=== PATIENT | female | born 1995 | race Caucasian/White ===

== ENCOUNTER 2023-10-06 10:38 | Outpatient (CLI) | payer OTHER, SELFPAY ==
--- NOTE | ~2023-10-06 | US_ITS ---
Pelvic ultrasound. Clinical History: Pelvic pain Technique: Realtime transabdominal and transvaginal scanning of the pelvis was performed. Color flow Doppler and Doppler spectral analysis were performed. Findings: The uterus is anteverted. The endometrial stripe has a thickness of 5 mm. No focal mass is identified. The right ovary measures 3.3 x 1.8 x 2.3 cm. No significant right ovarian or adnexal mass is seen. The left ovary measures 2.2 x 2.6 x 2.2 cm. No significant left ovarian or adnexal mass is seen. There is no evidence of free fluid in the cul de sac. Impression: Unremarkable pelvic ultrasound. Reviewed, dictated and finalized at location . ENFORCEMENT DIRECTOR Impression: Unremarkable pelvic ultrasound.
== END 2023-10-06 10:39 ==
PROVIDERS: PCP Obstetrics & Gynecology; Visit Provider Obstetrics & Gynecology
DX: R10.2 Pelvic and perineal pain (principal)
CPT/HCPCS: 76830; 76856

== ENCOUNTER 2024-01-30 07:00 | Outpatient (NON) | payer OTHER, SELFPAY | END 2024-01-30 07:01 | disposition home or self-care (01) | LOC: ANHLAB 02-02 06:49 | PROVIDERS: Visit Provider Obstetrics & Gynecology | DX: N39.3 Stress incontinence (female) (male) (principal) | CPT/HCPCS: 88305 ==

== ENCOUNTER 2024-01-30 08:42 | Day surgery (SDC) | payer OTHER, SELFPAY ==
[2024-01-30] VITALS (8 sets, daily range): BP systolic 112–138; BP diastolic 65–82; PULSE 57–85; RESP 11–16; TEMP 36.7–37.2; O2SAT 100
--- NOTE | 2024-01-30 11:51 | P.PNAN_ITS ---
Anes - Initial Pre Proc Eval Procedure: Operation Date: 01/30/24 12:00 Proposed Procedures p Laparoscopic Tubal Ligation - Jaden Smith MD s Hysteroscopy with Dilation and Curettage; Joceline Uterine Ablation - Jaden Smith MD s Nexplanon Implant Removal Left Upper Arm - Jaden Smith MD Date/Time: 01/30/24 11:51 Surgeon: Jaden Smith MD Pre Op Diagnosis: Desired Sterilization, Heavy Bleed. w/Dysmenorrhea Patient Data Age: 29 Gender: F Height: 1.68 m Weight: 78.925 kg Last Vital Signs Temp 37.2 C 01/30/24 10:24 Pulse 57 L 01/30/24 10:24 Resp 14 01/30/24 10:24 BP 138/72 01/30/24 10:24 Pulse Ox 100 01/30/24 10:24 O2 Del Method Room Air 01/30/24 10:24 Allergies Allergy/AdvReac Type Severity Reaction Status Date / Time No Known Allergies Allergy Verified 01/30/24 10:20 Home Medications Medication Instructions Recorded Confirmed Type multivitamin 1 tablet PO DAILY 01/20/24 01/30/24 History Patient hx anesthesia problems: none Family hx anesthesia problems: none Results Review: All pre-operative results and documents have been reviewed as part of the pre- operative evaluation. [facility] Past Medical History Medical History (Updated 01/30/24 @ 11:52 by Alcides Dong DO) Endometriosis Social History Social History Smoking status: Current every day smoker Tobacco type: e-cigarettes/vaping Additional smoking assessment comments: former Cigarettes, current vaping Alcohol intake: current Drinks per week: 1 Substance use type: does not use Anes - Eval Final PreProcedure Day of Procedure 01/30/24 11:51 Patient weight: overweight Heart: regular rate and rhythm Lungs: clear to auscultation Airway: Mallampati scale class 1 Neurological: alert and oriented Last oral intake: >/= 8 hours ASA classification: II Emergent: no Anesthetic plan: proceed Anesthesia type and monitoring: general ETT and standard monitoring Results Review: All pre-operative results and documents have been reviewed as part of the pre- operative evaluation. Informed Consent: The patient's anesthetic plan and its attendant risks and benefits were discussed with the patient/family/POA. Questions were solicited and answers provided to the satisfaction of the patient/family/POA.
--- NOTE | 2024-01-30 12:04 | PM.IMHP ---
H&P: HPI History of Present Illness Date/Time: 01/30/24 12:04 Chief Complaint: Painful periods Narrative: 28 yo with a history of endometriosis. She has heavy, painful menses. She is through with childbearing. She is interested in surgical management. Review of Systems Review of Systems: All systems reviewed & are unremarkable except as noted in HPI and below PMFSH Past Medical History Medical History Endometriosis Surgical History Surgical History History of appendectomy History of laparoscopy History of umbilical hernia repair Social History Social History Smoking status: Current every day smoker Tobacco type: e-cigarettes/vaping Additional smoking assessment comments: former Cigarettes, current vaping Alcohol intake: current Drinks per week: 1 Substance use type: does not use Meds Home Medications and Allergies Home Medications Medication Instructions Recorded Confirmed Type multivitamin 1 tablet PO DAILY 01/20/24 01/30/24 History Allergies Allergy/AdvReac Type Severity Reaction Status Date / Time No Known Allergies Allergy Verified 01/30/24 10:20 Vital Signs Vital Signs - 24 hr 01/30/24 10:24 Temperature 37.2 C Pulse Rate 57 L Respiratory Rate 14 Blood Pressure 138/72 Pulse Oximetry 100 Oxygen Delivery Room Air Exam Const: Orientation/consciousness: patient oriented x3 Other: Well-developed, well-nourished female in no acute distress. Neck: Thyroid: thyroid normal Lymphatic: no lymphadenopathy noted (in neck, axilla or inguinal nodes) Resp: Effort & Inspection: normal respiratory effort Auscultation: clear to auscultation bilaterally Cardio: Rate: regular rate Rhythm: regular rhythm Heart sounds: S1 normal heart sound present and S2 normal heart sound present GI: Other: ABD: Soft, nontender, nondistended. No guarding or rebound tenderness. No hepatosplenomegaly. : General: Yes no CVA tenderness Other: External genitalia: normal female hair distribution, without lesion. Urethral meatus: no lesion, non prolapsed. Bladder: no mass, nontender Vagina: well-estrogenized, without lesion or discharge. No cystocele or rectocele. Cervix: no lesion or discharge. Uterus: small, anteverted, freely mobile, nontender Adnexa: no mass or tenderness. Anus/perineum: no lesions, nontender Back/Spine/Pelvis: Back: no CVA tenderness Skin: General skin exam: normal color and no rashes or lesions noted Neuro: General: patient oriented x3 Extrem: Other: Extremities: nontender with no edema Psych: Mental Status: mental status grossly normal Affect: normal affect Assessment and Plan Assessment and plan (1) Menometrorrhagia: Code(s): N92.1 - Excessive and frequent menstruation with irregular cycle Status: Acute Assessment and Plan: A: Menometrorrhagia with dysmenorrhea, desired sterility. P: Reviewed medical as well as surgical approaches, and she prefers the latter. Specifically, I have offered her laparoscopic bilateral tubal ligation, hysteroscopy, dilation and sharp curettage and endometrial ablation, and removal of Nexplanon. She understands there are temporary methods of contraception available to her. She understands that there are nonsurgical options as well as surgical options. She understands that tubal ligation will render her permanently sterile. She understands that there is a failure rate associated with tubal ligation, as well as an inherent ectopic gestation risk. Furthermore, she understands risks of surgery to include risks of anesthesia, risks of pain, infection, bleeding, blood products, thromboembolic phenomena and damage to adjacent structures such as bowel, bladder, ureters, blood vessels and nerves. She understands all these
[2024-01-30] MEDS: LACTATED RINGERS 1,000 ML 30 ML IV CONT ×2 (12:05→13:47)
[2024-01-30] MEDS: ACETAMINOPHEN 500 MG TABLET 1000 MG PO (12:06)
--- NOTE | 2024-01-30 12:08 | WPDHPUPDATE1 ---
History and Physical Update Update Date/Time: 01/30/24 12:08 History and Physical has been reviewed, including an updated exam of the patient. There are NO changes in the patient's condition. Risks, benefits, and alternatives have been discussed and questions answered. Patient agrees to proceed with procedure.
--- NOTE | 2024-01-30 12:12 | SUR.PREOP ---
Per Dr. Smith, no antibiotic or SCD orders for pt in pre-op.
[2024-01-30] MEDS: LIDOCAINE HCL 1% LOCAL INJ 20 ML VIAL INFILTRATE (13:08)
--- NOTE | 2024-01-30 13:13 | W.PM.PROC2 ---
Procedure Note - Detailed Date of Procedure 01/30/24 Pre-op Diagnosis Menometrorrhagia Dysmenorrhea Desired sterility Post-op Diagnosis Same Procedure Performed Laparoscopic bilateral tubal ligation with Falope rings Incision and drainage of right ovarian cyst Hysteroscopy Dilation and sharp curettage Endometrial ablation Removal of Nexplanon contraceptive prema Surgeon Jaden Smith MD Anesthesia General and Local (1% lidocaine) Findings On laparoscopy, a 2 cm right ovarian cyst was noted, filled with serous fluid. Otherwise, unremarkable uterus, bilateral tubes and ovaries, bilateral round and uterosacral ligaments, anterior and posterior cul de sac. On hysteroscopy, the endometrial cavity was unremarkable. Both tubal ostia were seen. The uterus sounded to a depth of 7.5 cm with a cervical length of 3 cm. The Nexplanon prema was in the expected location in the left arm and was removed intact. Description of Procedure The patient was taken to the operating room where general endotracheal anesthesia was administered. She was prepared and draped in the usual sterile fashion in dorsal lithotomy position. The bladder was drained with a red rubber catheter. A sterile speculum was placed into the vagina. The anterior lip of the cervix was grasped with a single-tooth tenaculum. The acorn uterine manipulator was placed. The speculum was withdrawn. Gloves were changed and attention was turned the abdomen. An infraumbilical skin incision was made with a scalpel. The abdomen was tented and a 5 mm bladeless trocar was advanced under direct laparoscopic visualization. Pneumoperitoneum was administered using carbon dioxide gas. A survey of the pelvis and abdomen revealed the findings noted above. A second skin incision was made in the midline above the symphysis pubis and an 8 mm bladeless trocar was advanced under direct laparoscopic visualization. The fallopian tube on the right side was followed out to the fimbriated end for identification. It was then grasped in the midportion with the Falope ring applicator. The Falope ring was tented applied. A good loop of tube was noted to be distal to the ring. Hemostasis was excellent. The device was reloaded and the contralateral tube was similarly identified and ligated. An excellent application was noted here as well. A total of 6 mL of 1% lidocaine was infiltrated into the serosa of the proximal tubes for postoperative anesthesia. The ports were withdrawn. The gas was allowed to escape. The skin incisions were reapproximated using interrupted subcuticular sutures of 4 0 Vicryl. Dermaflex was applied externally. Attention was redirected to the vagina, where the acorn manipulator was withdrawn and the speculum reintroduced. Ten mL of 1% lidocaine was administered in a paracervical block. The cervix was then gently dilated using Hegar dilators until a 7 mm dilator could be passed. Hysteroscopy was performed using sterile saline as a distention medium. Findings are as noted above. Sharp curettage was then performed, and endometrial curettings were collected on a Telfa pad and passed off to be sent to pathology. Finally, the the Joceline device was advanced and endometrial ablation commenced without difficulty. The device was withdrawn and a second look was taken using the hysteroscope. Excellent coverage of the endometrial cavity was noted. The tenaculum was removed. Hemostasis was excellent. Finally, the left arm was prepped and draped. Two mL of 1% lidocaine was infiltrated. A stab incision was made with a #11 scalpel. A curved hemostat was used to grasp the Nexplanon prema, which was easily removed, intact, and discarded. Steri strips and a pressure dressing were applied. Sponge, lap, needle and instrument counts were correct. The patient was awakened and taken to the recovery room in stable condition. I was present and scrubbed through the entire procedure. Implants Falope rings x 2 Estimated B
[2024-01-30] MEDS: fentaNYL CITRATE INJ (*CRX) 100 MCG/2 ML VIAL 25 MCG IV PUSH ×6 (13:32→14:21)
[2024-01-30] MEDS: KETOROLAC 30 MG/ML VIAL (*BKC) 15 MG IV PUSH (13:58)
--- NOTE | 2024-01-30 14:33 | WPDANESPN ---
Anes - Prog Note Post-Op Date/Time: 01/30/24 14:33 Cardiovascular status: normal Respiratory status: normal Airway patency: baseline Mental status: baseline Post-Op hydration status: normal Vital Signs: Last Vital Signs Temp 36.7 C 01/30/24 13:11 Pulse 85 01/30/24 14:15 Resp 16 01/30/24 14:15 BP 114/74 01/30/24 14:15 Pulse Ox 100 01/30/24 14:15 O2 Del Method Room Air 01/30/24 14:15 O2 Flow Rate 6 01/30/24 13:25 Pain Score (VAS): 2 I/O: Intake & Output 01/29/24 01/30/24 01/30/24 23:59 07:59 15:59 Intake Total 350 Output Total 300 Balance 50 Post-procedural complaints: none Patient Feedback: Patient satisfied with anesthetic care. Other Findings: Patient vital signs back to baseline. Patient denies nausea and vomiting. Patient's pain under control. Patient OK for discharge.
[2024-01-30] MEDS: ONDANSETRON INJ 4 MG/2 ML VIAL IV PUSH (15:05)
== END 2024-01-30 15:24 | disposition home or self-care (01) ==
PROVIDERS: Visit Provider Obstetrics & Gynecology
PROC: (CPT 58671; principal; 2024-01-30 12:00)
PROC: 0U5B8ZZ Destruction of Endometrium, Via Natural or Artificial Opening Endoscopic (ICD-10-PCS; CPT 58563; 2024-01-30 12:00)
PROC: (CPT 58671; 2024-01-30 12:00)
DX: N92.1 Excessive and frequent menstruation with irregular cycle (principal); N94.5 Secondary dysmenorrhea; Z30.2 Encounter for sterilization; Z30.46 Encounter for surveillance of implantable subdermal contraceptive
CPT/HCPCS: 58671; 58563; 11982

== ENCOUNTER 2025-06-27 12:48 | Emergency (ER) | payer OTHER, SELFPAY ==
[2025-06-27] VITALS (7 sets, daily range): BP systolic 96–146; BP diastolic 62–84; PULSE 66–100; RESP 16–18; TEMP 36.8–36.9; O2SAT 96–100
--- NOTE | ~2025-06-27 | US_ITS ---
EXAMINATION: US transvaginal INDICATION: Ovarian cyst torsion. Comparison:10/06/2023 TECHNIQUE: Multiple transabdominal and endovaginal sonographic images of the pelvis performed. FINDINGS: The uterus measures 7.4 x 4 x 3 cm. The endometrial complex measures 7 mm. The right ovary measures 4.1 x 2.2 x 3 cm and the left ovary measures 3 x 2.5 x 1.8 cm. There is a right ovarian cyst measuring 2 cm. And the left ovary there is a 2.2 x 0.9 x 1.5 cm hyperechoic mass, possibly a dermoid or collapsed corpus luteal cyst. There are small follicles in each ovary. Normal doppler signal in both ovaries. There is free fluid in the pelvis. There are no abnormal masses seen on either side. IMPRESSION: 1. 2.2 cm hyperechoic left ovarian mass which may represent a collapsed corpus luteal cyst or dermoid. Consider follow-up ultrasound in 4-6 weeks. 2: Simple cyst of the right ovary measuring 2 cm. Reviewed, dictated and finalized at location O. FIC SURVEY TECHNICIAN
--- NOTE | 2025-06-27 12:55 | ED_ITS ---
HPI - Abdominal Pain General Chief Complaint: Abdominal Pain Stated Complaint: left ovary pain Time Seen by Provider: 06/27/25 12:50 Source: patient Mode of arrival: ambulatory Limitations: no limitations History of Present Illness HPI narrative: LEFT LOWER ABDOMEN PAIN, DULL ACHING STARTED STARTED 2 DAYS AGO, NOT IMPROVING ON IBUPROFEN, TRAMADOL, OXYCODONE, GOT WORSE THIS MORNING NO AGGRAVATING OR RELIEVING FACTORS, HISTORY OF STAGE IV ENDO NEW FEW OASIS, 7 PELVIC SURGERY FOR SAME REASON LAST 1 WAS 1 YEAR AGO, BILATERAL TUBAL LIGATION. Related Data Home Medications ?Medication ?Instructions ?Recorded ?Confirmed ?Last Taken ?Type multivitamin 1 tablet PO DAILY 01/20/24 0 01/30/24 01/26/24 History Allergies Allergy/AdvReac Type Severity Reaction Status Date / Time No Known Allergies Allergy Verified 06/27/25 12:50 Review of Systems 2 Review of Systems: All systems reviewed & are unremarkable except as noted in HPI and below PMFSH Past Medical History Medical History Endometriosis Surgical History Surgical History History of umbilical hernia repair History of appendectomy History of laparoscopy Social History Social History Smoking status: Current every day smoker Tobacco type: e-cigarettes/vaping Additional smoking assessment comments: former Cigarettes, current vaping Alcohol intake: current Drinks per week: 1 Substance use type: does not use Exam 2 Narrative: GENERAL APPEARANCE: WELL-DEVELOPED, WELL-NOURISHED SKIN: NORMAL COLOR HEAD: NORMOCEPHALIC, NONTRAUMATIC EYES: CLEAR CONJUNCTIVA ENT: OROPHARYNX NORMAL, EARS NORMAL, NOSE NORMAL NECK: SUPPLE, NONTENDER CHEST AND RESPIRATORY: AIRWAY PATENT, NO RESPIRATORY DISTRESS, NO ACCESSORY MUSCLE USE HEART: REGULAR RATE/RHYTHM ABDOMEN: SOFT, SEVERE TENDERNESS LEFT LOWER QUADRANT WITH LIGHT PALPATION, NO GUARDING OR REBOUND NO ORGANOMEGALY, QUIET BOWEL SOUNDS VASCULAR: NORMAL PERIPHERAL PULSES, NORMAL CAPILLARY REFILL. MUSCULOSKELETAL: NORMAL RANGE OF MOTION, NONTENDER BACK NEUROLOGIC: ALERT AND ORIENTED ?3, LOZENGE MAKER IS NORMAL TESTED, NO GROSS MOTOR DEFICIT Course Consultations Consultation #1: DR WU DISCHARGED HOME, OUTPATIENT FOLLOW-UP, CONTINUE MEDICATION Date: 06/27/25 Vital Signs Vital signs: Vital Signs Temperature 36.8 C 06/27/25 12:48 Pulse Rate 100 06/27/25 12:48 Respiratory Rate 16 06/27/25 12:48 Blood Pressure 146/84 H 06/27/25 12:48 Pulse Oximetry 99 06/27/25 12:48 Oxygen Delivery Room Air 06/27/25 12:48 Temperature 36.8 C 06/27/25 12:48 Pulse Rate 100 06/27/25 12:48 Respiratory Rate 16 06/27/25 12:48 Blood Pressure 146/84 H 06/27/25 12:48 Pulse Oximetry 99 06/27/25 12:48 Oxygen Delivery Room Air 06/27/25 12:48 MDM - Abdominal Pain MDM Narrative Medical decision making narrative: LEFT LOWER QUADRANT PAIN, HISTORY OF SIMILAR SYMPTOMS SECONDARY TO ENDOMETRIOSIS, HISTORY OF STAGE IV ENDOMETRIOSIS WITH 7 PELVIC SURGERY RELATED TO THAT DISEASE. VITAL SIGNS ARE STABLE PHYSICAL EXAMINATION SHOWING MILD TO MODERATE TENDERNESS LEFT LOWER QUADRANT DIFFERENTIAL DIAGNOSIS INCLUDE ENDOMETRIOSIS FLARE, OVARIAN TORSION, OVARIAN CYST RUPTURE. BLOOD WORKUP TODAY INCLUDES CBC, CMP SHOWED INSIGNIFICANT ABNORMALITIES URINALYSIS SHOWED NO EVIDENCE OF INFECTION PELVIC ULTRASOUND SHOWED 2.2 CM LEFT OVARIAN MASS DIAGNOSIS LEFT OVARIAN MASS DISCHARGED HOME DISCUSSED WITH DR. Wu The pt was discharged to home.the pt,s condition upon discharge was fair,education was provided to the pt in reference to the final impression,discharge study results,treatment,prognosis and need for follow up . Differential Diagnosis Differential diagnosis: Likely other (As above) Medical Records Attestation: I reviewed the patient's medical records. Lab Data Attestation: I reviewed the patient's lab results. 06/27/25 13:05 06/27/25 13:05 Labs: Lab Results 06/27/25 06/27/25 Range/Units 13:05 14:32 WBC 8.3 (4.8-10.8) K/mm3 RBC 4.47 (4.20-5.40) M/mm3 Hgb 13.4 (12.0-15.0) g/dL Hct 39.5 (35.0-49.0) % MCV 88.4 (78.0-102.0) fL MCH 30.0 (27.0-31.0) pg MCHC 33.9 (32-36) g/dL RDW 12.5 (11.6-14.4) % Plt Count 282 (150-420) K/mm3 MPV 9.6 (9.2-11.8) fl Immature Gran % (Auto) 0.4 H (0.0-0.0) % Neut % (Auto) 83.9 H (50.0-70.0) % Lymph % (Auto) 10.0 L (18.0-42.0) % [place] % (Auto) 5.1 (2.0-11.0) % Eos % (Auto) 0.2 L (1.0-6.0) % Baso % (Auto) 0.4 (0.0-1.0) % Lymph # (Auto) 0.83 L (1.10-4.50) K/mm3 [place] # (Auto) 0.42 (0.10-0.90) K/mm3 Eos # (Auto) 0.02 (0.02-0.50) K/mm3 Baso # (Auto) 0.03 (0.00-0.10) K/mm3 Abs Immat Gran (auto) 0.03 H (0.00-0.00) K/mm3 Absolute Neuts (auto) 6.97 (1.70-7.20) K/mm3 Absolute Nucleated RBC 0.00 (0.00-0.00) K/mm3 Nucleated RBC % 0.0 (0-0.0) % Sodium 135 L (137-145) mmol/L Potassium 3.8 (3.4-5.0) mmol/L Chloride 109 H (98-107) mmol/L Carbon Dioxide 20 L (22-30) mmol/L Anion Gap 6 (4-12) mmol/L BUN 14 (7-17) mg/dL Creatinine 1.00 (0.7-1.0) mg/dL Estim Creat Clear Calc 69 ml/min Estimated GFR > 60 (59 - ) Glucose 111 H (65-110) mg/dL Calculated Osmolality 281 L (285-295) mOsm/kg Calcium 9.4 (8.4-10.2) mg/dL Total Bilirubin 1.4 H (0.2-1.3) mg/dL AST 23 (14-36) U/L ALT 19 (6-35) U/L Alkaline Phosphatase 52 (38-126) U/L Total Protein 7.6 (6.3-8.2) g/dL Albumin 4.8 (3.5-5.1) g/dL Urine Color Light yellow (Yellow) Urine Appearance Clear (Clear) Urine pH 7.5 (5.0-8.0) Ur Specific [place] 1.010 (1.010-1.020) Urine Protein Negative (Negative) Urine Glucose (UA) Negative (Negative) Urine Ketones Trace H (Negative) Ur Blood (Man) 2+ H (Negative) Urine Nitrate Negative (Negative) Urine Bilirubin Negative (Negative) Urine Urobilinogen 0.2 (0.2-1.0) mg/dL Leukocyte Esterase Rfl Negative (Negative) SUSANNA/UL Urine RBC None seen (0-2) /hpf Urine WBC 0-3 (0-3) /hpf Ur Squamous Epith Cells Few (Few) /hpf Urine Bacteria Trace (None) /hpf Imaging Data Radiologist's impression: ITS Impressions Transvaginal US 06/27/25 14:06 IMPRESSION: 1. 2.2 cm hyperechoic left ovarian mass which may represent a collapsed corpus luteal cyst or dermoid. Consider follow-up ultrasound in 4-6 weeks. 2: Simple cyst of the right ovary measuring 2 cm. Critical Care Time Critical Care Time Critical Care Time: No Discharge Plan Discharge Clinical Impression: Mass of left ovary Patient Disposition: Home Condition: Improved Instructions: Ovarian Cyst (ED) Additional Instructions: RETURN IF SYMPTOMS ARE WORSENING , CALL DR. WU FOR APPOINTMENT, TAKE TYLENOL, IBUPROFEN NEEDED FOR ACHES AND PAIN, CONTINUE HOME MEDICATIONS. Patient Language: Tajik Prescriptions: No Action multivitamin Tablet 1 tablet PO DAILY hydrocodone-acetaminophen 5-325 mg tablet 1 - 2 tablet PO Q6H PRN (Reason: pain) Qty: 30 0RF Follow-up/Referrals: Jaden Wu MD [Physician, [employer]ARD[employer] CONTROL CLERK] - 07/01/25 Cindy,MD Gibson [Primary Care Provider, Family Practice]
[2025-06-27 13:10] LABS: Hematocrit 39.5 % (35.0-49.0); Hemoglobin 13.4 g/dL (12.0-15.0); Immature Granulocyte Percent A 0.4 % (0.0-0.0); Lymphocytes Absolute Auto 0.83 K/mm3 (1.10-4.50); Mean Corpuscular HGB Conc 33.9 g/dL (32-36); Mean Corpuscular Hemoglobin 30.0 pg (27.0-31.0); Mean Corpuscular Volume 88.4 fL (78.0-102.0); Nucleated Red Blood Cells Absolute Auto 0.00 K/mm3 (0.00-0.00); Nucleated Red Blood Cells Perc 0.0 % (0-0.0); Platelet Count Result 282 K/mm3 (150-420); Red Blood Count 4.47 M/mm3 (4.20-5.40); White Blood Count 8.3 K/mm3 (4.8-10.8)
[2025-06-27] MEDS: ONDANSETRON INJ 4 MG/2 ML VIAL IV PUSH (13:19)
[2025-06-27] MEDS: SODIUM CHLORIDE 0.9% IV 1,000 ML 999 ML IV CONT (13:20)
[2025-06-27] MEDS: fentaNYL CITRATE INJ (*CRX) 100 MCG/2 ML VIAL 50 MCG IV PUSH (13:20)
[2025-06-27 13:23] LABS: Alanine Aminotransferase 19 U/L (6-35); Albumin Level 4.8 g/dL (3.5-5.1); Alkaline Phosphatase 52 U/L (38-126); Anion Gap 6 mmol/L (4-12); Aspartate Amino Transferase 23 U/L (14-36); Bilirubin,Total 1.4 mg/dL (0.2-1.3); Blood Urea Nitrogen 14 mg/dL (7-17); Calcium 9.4 mg/dL (8.4-10.2); Carbon Dioxide 20 mmol/L (22-30); Chloride 109 mmol/L (98-107); Estimated CRCL calculation 69 ml/min; Estimated Glomerular Filt Rate > 60; Glucose 111 mg/dL (65-110); Osmolality Calculated 281 mOsm/kg (285-295); Potassium 3.8 mmol/L (3.4-5.0); Sodium 135 mmol/L (137-145); Total Protein 7.6 g/dL (6.3-8.2)
--- OUTSIDE RECORDS SUMMARY | 2025-06-27 13:53 | XMS_ITS | Clinical Summary ---
Author Organization [facility] Address [address] [place] [address] Care Team Providers Care Space Control Agent Name Role Phone Tanvi Cr ENTERPRISE ACCOUNT MANAGER-RECYCLABLE MATERIALS SORTER Primary Care Provider Source Comments [facility] [employer],non-owned Affiliates and Associated Physician Practices is amultiple site organization consisting of ambulatory clinics and hospital sitesin [place], [place], [place] and [place]. This disclosure is being madepursuant to the Care Everywhere program and may not contain all information available regarding this patient. Last updated 18.[facility] [employer] Allergies No known active allergies Medications * Be aware that medications may not be up to date on this document. Alwaysverify current medications with the patient. etonogestrel (NEXPLANON) 68 MG implant 68 mg by Subdermal route once Active ibuprofen (MOTRIN) 600 MG tablet Take 1 (one) tablet by mouth every 6 hours as needed for Pain 60 tablet 1 1 Active acetaminophen (TYLENOL) 500 MG capsule Take 1 (one) capsule by mouth every 4 hours as needed for Fever or Pain 30 capsule 1 Active ondansetron, disintegrating, (ZOFRAN ODT) 8 MG tablet 1 Active traMADol (ULTRAM) 50 MG tablet 1 Active ibuprofen (MOTRIN) 600 MG tablet Take 1 (one) tablet by mouth every 6 hours as needed for Pain 40 tablet 1 1 Active docusate sodium (COLACE) 100 MG capsule Take 1 (one) capsule by mouth 2 times daily 60 capsule 1 1 Active acetaminophen (TYLENOL) 500 MG capsule Take 1 (one) capsule by mouth every 4 hours as needed for Fever or Pain 60 capsule 1 1 Active oxyCODONE, immediate release, (ROXICODONE) 5 MG tablet Take 1 (one) tablet by mouth every 4 hours as needed for Pain (take 1-2 pills every 4 hours) 30 tablet 1 Active meloxicam (Mobic) 15 MG tabletIndicatio ns:Ankle tendinitis Take 1 (one) tablet by mouth once daily 30 tablet 2 4 Active Active Problems Problem Noted Date Diagnosed Date Diagnosis unknown 01/11/2021 Immunizations Immunization Administration Dates Next Due 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 0.3mL Purple cap 04/11/2021,03/21/2021 INFLUENZA VACCINE 05/31/2021 Family History Medical History Relation Name Comments Hypertension Father Relation Name Status Comments Father Social History Tobacco Use Types Packs/Day Years Used Date Smoking Tobacco: Former Cigarettes Smokeless Tobacco: Never Tobacco Cessation:Counseling Given: Yes Alcohol Use Standard Drinks/Week Comments Yes 0 (1 standard drink = 0.6 oz pur e alcohol) occasional Comments No Sex and Gender Information Value Date Recorded Sex Assigned at Female 12/29/2020 1:03 AM CDT Legal Sex Female 11:29 AM CDT Gender Identity Female 01/11/2021 8:13 AM CDT Sexual Orientation Not on file Last Filed Vital Signs Vital Sign Reading Time Taken Comments Blood Pressure 94/53 07/17/2021 12:34 PM AIRCRAFT DETAIL DRAFTSPERSON Pulse 60 07/17/2021 12:34 PM AIRCRAFT DETAIL DRAFTSPERSON Temperature 36.3 C (97.4 F) 07/17/2021 10:54 AM AIRCRAFT DETAIL DRAFTSPERSON Respiratory Rate 18 07/17/2021 12:34 PM AIRCRAFT DETAIL DRAFTSPERSON Oxygen Saturation 100% 07/17/2021 12:34 PM AIRCRAFT DETAIL DRAFTSPERSON Inhaled Oxygen Concentration - - Weight 70.8 kg (156 lb) 08/08/2021 2:19 PM AIRCRAFT DETAIL DRAFTSPERSON Height 167.6 cm (5' 6) 08/08/2021 2:19 PM AIRCRAFT DETAIL DRAFTSPERSON Body Mass Index 25.18 08/08/2021 2:19 PM AIRCRAFT DETAIL DRAFTSPERSON Plan of Treatment Health Maintenance Due Date Last Done Comments HIV SCREENING 01/08/2011 HEPATITIS C SCREENING 01/04/2014 DTAP/TDAP/TD VACCINES (1 - Tdap) 01/08/2015 HEPATITIS B VACCINE (1 of 3 - 19+ 3-dose series) 01/08/2015 PAP SMEAR 01/08/2017 HPV VACCINE (1 - 3-dose SCDM series) 01/08/2023 DEPRESSION SCREENING 08/25/2024 COVID-19 VACCINE (3 - 2024-2 6 season) 2025 04/11/2021, 03/21/2021 INFLUENZA VACCINE (#1) 2025 05/31/2021 ZOSTER VACCINE (1 of 2) 01/08/2046 HIB VACCINE Aged Out No longer eligi ble based on patient's age to complete this topic MENINGOCOCCAL (Group B) VACCINE SHARED DECISION-MAKING Aged Out No longer eligible based on patient's age to complete this topic MENINGOCOCCAL GROUPS A/C/Y/W VACCINE Aged Out No longer eligible b ased on patient's age to complete this topic PNEUMOCOCCAL VACCINE Aged Out No long er eligible based on patient's age to complete this topic Medical Devices Implanted Type Area Ledge Man Device Identifier Shelf Expiration Date Model / Serial / Lot Graft Tissue Amniofix Purion Amnio Membr Implanted:Qty: 1 on 01/11/2021 by Bobo Huertas MD at [facility] N/A: Abdomen MiMedx 10/23/2025 AAS-5460 / / [id number] 42-010 Graft Tissue Amniofix Purion Amnio Membr Implanted:Qty: 1 on 01/11/2021 by Bobo Huertas MD at [facility] N/A: Abdomen MiMedx 10/23/2025 AAS-5460 / / [id number] 42-009 Graft Tissue Amniofix Purion Amnio Membr Implanted:Qty: 1 on 07/17/2021 by Bobo Huertas MD at [facility] Right: Pelvis MiMedx 03/25/2026 AAS-5460 / / Description:FC Graft Tissue Amniofix Purion Amnio Membr Implanted:Qty: 1 on 07/17/2021 by Bobo Huertas MD at [facility] Left: Pelvis MiMedx 03/25/2026 [id number]-5460 / / Description:jh Insurance [employer] SELF PAY NO INSURANCE Member Subscriber Plan / Payer (Ef fective for All Dates) Name:Bishop Mcallister Member ID:Not on file Relation to Subscriber:Not on file Name:BISHOP MCALLISTER Subscriber ID:Not on file (Home) Address: [address] [place] [address] Payer ID:Not on file Group ID:Not on file Type:Self Pay Address: [place], [place] * Guarantor: BISHOP MCALLISTER Account Type Relation to Patient Date of Phone Billing Address Personal/Family [address] [place] [address] SELF PAY NO INSURANCE Member Subscriber Plan / Payer (Ef fective for All Dates) Name:Bishop Mcallister Member ID:Not on file Relation to Subscriber:Not on file Name:BISHOP MCALLISTER Subscriber ID:Not on file (Home) Address: [address] [place] [address] Payer ID:Not on file Group ID:Not on file Type:Self Pay Address: [place], [place] * Guarantor: BISHOP MCALLISTER Account Type Relation to Patient Date of Phone Billing Address Personal/Family [address] [place] [address] SELF PAY NO INSURANCE Member Subscriber Plan / Payer (Ef fective for All Dates) Name:Bishop Mcallister Member ID:Not on file Relation to Subscriber:Not on file Name:BISHOP MCALLISTER Subscriber ID:Not on file (Home) Address: [address] [place] [address] Payer ID:Not on file Group ID:Not on file Type:Self Pay Address: [place], [place] Care Teams Space Control Agent Relationship Specialty Start Date End Date Tanvi Cr, ENTERPRISE ACCOUNT MANAGER-BETTIE [address] [place] [address] PCP - General Nurse Practitioner Family 07/17/21
--- OUTSIDE RECORDS SUMMARY | 2025-06-27 13:53 | XMS_ITS | Encounter Summary ---
Author Organization [facility] Address [address] [place] [address] Care Team Providers Care It Infrastructure Specialist Name Role Phone Tanvi Cr SURVEY RESEARCH TEACHER-REED WORKER Primary Care Provider Reason for Visit * Reason Onset Date Comments Reschedule Appointment 07/30/2021 Encounter Details Date Type Department Care Team (Late st Contact Info) Description 07/30/2021 Telephone [facility] [address] [place] [address] Bobo Huertas MD [address] [facility] [address] [address] [place] [address] Reschedule Appointment Social History Tobacco Use Types Packs/Day Years Used Date Smoking Tobacco: Former Cigarettes Smokeless Tobacco: Never Alcohol Use Standard Drinks/Week Comments Yes 0 (1 standard drink = 0.6 oz pur e alcohol) occasional Comments No Sex and Gender Information Value Date Recorded Sex Assigned at Female 12/29/2020 1:03 AM CDT Legal Sex Female 11:29 AM CDT Gender Identity Female 01/11/2021 8:13 AM CDT Sexual Orientation Not on file documented as of this encounter Miscellaneous Notes * Telephone Encounter - Ptatie Walden - 07/30/2021 9:21 AM CST Pt is calling to reschedule her post op appt Pt CB# [phone] ARD/STEWARDESS LOUNGE documented in this encounter Plan of Treatment Not on file documented as of this encounter Visit Diagnoses Not on filedocumented in this encounter Care Teams It Infrastructure Specialist Relationship Specialty Start Date End Date Tanvi Cr APRN-REED WORKER [address] [place] [address] PCP - General Nurse Practitioner Family 07/17/21 documented as of this encounter
--- OUTSIDE RECORDS SUMMARY | 2025-06-27 14:19 | XMS_ITS | Encounter Summary ---
Author Organization [facility] Health Address [address] [place] [address] Care Team Providers Care Apartment Coordinator Name Role Phone Tanvi Cr PLANT GUARD-YARD LABORER Primary Care Provider Reason for Visit * Reason Onset Date Comments Reschedule Appointment 07/30/2021 Encounter Details Date Type Department Care Team (Late st Contact Info) Description 07/30/2021 Telephone [facility] [address] [place] [address] Bobo Huertas MD [address] [facility] [address] [place] [address] Reschedule Appointment Social History Tobacco [...] encounter Miscellaneous Notes * Telephone Encounter - Pattie Walden - 07/30/2021 9:21 AM CST Pt is calling to reschedule her post op appt Pt CB# [phone] ON FANCIER documented in this encounter Plan of Treatment Not on file documented as of this encounter Visit Diagnoses Not on filedocumented in this encounter Care Teams Apartment Coordinator Relationship Specialty Start Date End Date Tanvi Cr APRN-YARD LABORER [address] [place] [address] PCP - General Nurse Practitioner Family 07/17/21 documented as of this encounter
--- OUTSIDE RECORDS SUMMARY | 2025-06-27 14:19 | XMS_ITS | Clinical Summary ---
Author Organization [facility] Address [address] [place] [address] Care Team Providers Care Medical Office Technologist Name Role Phone None, Provider MD Primary Care Provider Unavaila ble Allergies No known active allergies Medications ALPRAZolam (XANAX) 0.25 MG tabletIndicatio ns:Anxiety Take 1 tablet (0.25 mg total) by mouth nightly as needed for Sleep. 20 tablet 08/07/2022 Active butalbital-acet aminophen-caffe ine (FIORICET) 50-300-40 MG capsule Take 1 capsule by mouth every 4 (four) hours as needed for Pain. 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 Trigeminal neuralgia of left side of face 2021 Neck pain 08/07/2022 Dysphagia, unspecified type 08/07/2022 Anxiety 08/07/2022 Family History Medical History Relation Comments No Known Problems Brother No Known Problems Father No Known Problems Maternal Aunt No Known Problems Maternal Grandfather No Known Problems Maternal Grandmother No Known Problems Maternal Uncle No Known Problems Mother No Known Problems Other No Known Problems Paternal Aunt No Known Problems Paternal Grandfather No Known Problems Paternal Grandmother No Known Problems Paternal Uncle No Known Problems Sister Relation Status Comments Brother Father Maternal Aunt Maternal Grandfather Maternal Grandmother Maternal Uncle Mother Other Paternal Aunt Paternal Grandfather Paternal Grandmother Paternal Uncle Sister Social History Tobacco Use Types Packs/Day Years Used Date Smoking Tobacco: Some Days Smokeless Tobacco: Never Tobacco Cessation:Ready to Q uit: No; Counseling Given: Yes Alcohol Use Standard Drinks/Week Comments Not Currently 0 (1 standard drink = 0.6 oz pur e alcohol) PHQ-2 Answer Date Recorded Patient Health Questionnaire-2 Score 0 08/07/2022 Comments Unknown Sex and Gender Information Value Date Recorded Sex Assigned at Not on file Legal Sex Female 5:44 PM FLIGHT CREW SCHEDULER Gender Identity Not on file Sexual Orientation Not on file Last Filed Vital Signs Vital Sign Reading Time Taken Comments Blood Pressure 103/66 09/10/2022 10:57 AM FLIGHT CREW SCHEDULER Pulse 67 09/10/2022 10:57 AM FLIGHT CREW SCHEDULER Temperature 36.4 C (97.6 F) 09/10/2022 8:44 AM FLIGHT CREW SCHEDULER Respiratory Rate 16 09/10/2022 10:57 AM FLIGHT CREW SCHEDULER Oxygen Saturation 100% 09/10/2022 10:57 AM FLIGHT CREW SCHEDULER Inhaled Oxygen Concentration - - Weight 77.1 kg (170 lb) 09/10/2022 8:44 AM FLIGHT CREW SCHEDULER Height 167.6 cm (5' 6) 09/10/2022 8:44 AM FLIGHT CREW SCHEDULER Body Mass Index 27.44 09/10/2022 8:44 AM FLIGHT CREW SCHEDULER Plan of Treatment Health Maintenance Due Date Last Done Comments Cervical Cancer Screening Pa p Smear (Age 21 to 29) Every 3 Years 1996 Cervical Cancer Screening 1996 Annual Physical 01/08/1999 Hepatitis C 01/08/2014 DTaP, Tdap and Td Vaccines ( 1 - Tdap) 01/08/2015 Hepatitis B Vaccines (1 of 3 - 19+ 3-dose series) 01/08/2015 Pneumococcal Vaccine: Pediatrics (0 to 5 Years) and At-Risk Patients (6 to 49 Years) (1 of 2 - PCV) 01/08/2015 HPV Vaccines (1 - 3-dose SCD M series) 01/08/2023 COVID-19 Vaccine ( - 2024-2 6 season) 2025 04/11/2021, 03/21/2021 Influenza Adult (#1) 2025 05/31/2021 Hepatitis A Vaccines Aged Out No long er eligible based on patient's age to complete this topic Meningococcal B Vaccine Aged Out No l onger eligible based on patient's age to complete this topic Meningococcal Vaccine Aged Out No palak jolynn eligible based on patient's age to complete this topic RSV Immunizations Under 20 Months Aged Out No longer eligible b ased on patient's age to complete this topic Insurance GENERIC - COMMERCIAL Care Teams Medical Office Technologist Relationship Specialty Start Date End Date None, Provider, PCP - General UNKNOWN PHYSICIAN SPECIALTY 07/31/22
--- OUTSIDE RECORDS SUMMARY | 2025-06-27 14:19 | XMS_ITS | Clinical Summary ---
Author Organization [facility] Address [address] [place] [address] Care Team Providers Care Success Coach Name Role Phone Tanvi Cr PERFECT BINDER FEEDER OFFBEARER-ASSISTANT PROFESSOR OF GERMAN Primary Care Provider Source Comments [facility],non-owned Affiliates and Associated Physician Practices is amultiple site organization consisting of ambulatory clinics and hospital sitesin [place], [place], [place] and [place]. This disclosure is being madepursuant to the Care Everywhere program and may not contain all information available regarding this patient. Last updated 18.[facility] Allergies No known active allergies Medications * [...] 01/11/2021 Immunizations Immunization Administration Dates Next Due [employer] primary monoval ent 12+ yr 0.3mL Purple [...] Comments Blood Pressure 94/53 07/17/2021 12:34 PM RECONNAISSANCE CREWMEMBER Pulse 60 07/17/2021 12:34 PM RECONNAISSANCE CREWMEMBER Temperature 36.3 C (97.4 F) 07/17/2021 10:54 AM RECONNAISSANCE CREWMEMBER Respiratory Rate 18 07/17/2021 12:34 PM RECONNAISSANCE CREWMEMBER Oxygen Saturation 100% 07/17/2021 12:34 PM RECONNAISSANCE CREWMEMBER Inhaled Oxygen Concentration - - Weight 70.8 kg (156 lb) 08/08/2021 2:19 PM RECONNAISSANCE CREWMEMBER Height 167.6 cm (5' 6) 08/08/2021 2:19 PM RECONNAISSANCE CREWMEMBER Body Mass Index 25.18 08/08/2021 2:19 PM RECONNAISSANCE CREWMEMBER Plan of Treatment Health Maintenance Due Date [...] this topic Medical Devices Implanted Type Area Cutter Head Sharpener Device Identifier Shelf Expiration Date Model / Serial / Lot Graft Tissue Amniofix Purion Amnio Membr Implanted:Qty: 1 on 01/11/2021 by Bobo Huertas MD at [facility] N/A: Abdomen MiMedx 10/23/2025 AAS-5460 / / [id number] 42-010 Graft Tissue Amniofix Purion Amnio Membr Implanted:Qty: 1 on 01/11/2021 by Bobo Huertas MD at [facility] N/A: Abdomen MiMedx 10/23/2025 AAS-5460 / / [id number] 42-009 Graft Tissue Amniofix Purion Amnio Membr Implanted:Qty: 1 on 07/17/2021 by Bobo Huertas MD at [facility] Right: Pelvis MiMedx 03/25/2026 AAS-5460 / / Description:FC Graft Tissue Amniofix Purion Amnio Membr Implanted:Qty: 1 on 07/17/2021 by Bobo Huertas MD at [facility] Left: Pelvis MiMedx 03/25/2026 AAS-5460 / / Description:jh Insurance [facility] Address: [facility] [id number] [place] [address] SELF PAY NO INSURANCE Member Subscriber Plan / Payer (Ef fective for All Dates) Name:Bishop Mcallister Member ID:Not on file Relation to Subscriber:Not on file Name:BISHOP MCALLISTER Subscriber ID:Not on file (Home) Address: [address] [place] [address] Payer ID:Not on file Group ID:Not on file Type:Self Pay Address: [place], [place] * Guarantor: BISHOP MCALLISTER Account Type Relation to Patient Date of Phone Billing Address Personal/Family [address] [place] [address] SELF PAY NO INSURANCE Member Subscriber Plan / Payer (Ef fective for All Dates) Name:Bishop Mcallister Member ID:Not on file Relation to Subscriber:Not on file Name:BISHOP MCALLISTER Subscriber ID:Not on file (Home) Address: [address] [place] [address] Payer ID:Not on file Group ID:Not on file Type:Self Pay Address: [place], [place] * Guarantor: BISHOP MCALLISTER Account Type Relation to Patient Date of Phone Billing Address Personal/Family [address] [place] [address] SELF PAY NO INSURANCE Member Subscriber Plan / Payer (Ef fective for All Dates) Name:Bishop Mcallister Member ID:Not on file Relation to Subscriber:Not on file Name:BISHOP MCALLISTER Subscriber ID:Not on file (Home) Address: [address] [place] [address] Payer ID:Not on file Group ID:Not on file Type:Self Pay Address: [place], [place] Care Teams Success Coach Relationship Specialty Start Date End Date Tanvi Cr, PERFECT BINDER FEEDER OFFBEARER-BETTIE [address] [place] [address] PCP - General Nurse Practitioner Family 07/17/21
--- OUTSIDE RECORDS SUMMARY | 2025-06-27 14:19 | XMS_ITS | Encounter Summary ---
Author Organization [facility] Address [address] [place] [address] Care Team Providers Care Scrap Carrier Name Role Phone None, Provider Primary Care Provider Darien rodriguez Encounter Details Date Type Department Care Team (Late st Contact Info) Description 09/25/2022 Handseeing InformationharArchive Message Enc [facility] [address] [address] Mycmaciel, [facility] Provider REsponse Social History Tobacco Use Types Packs/Day Years Used Date Smoking Tobacco: Some Days Smokeless Tobacco: Never Alcohol Use Standard Drinks/Week Comments Not Currently 0 (1 standard drink = 0.6 oz pur e alcohol) PHQ-2 Answer Date Recorded Patient Health Questionnaire-2 Score 0 08/07/2022 Comments Unknown Sex and Gender Information Value Date Recorded Sex Assigned at Not on file Legal Sex Female 5:44 PM SENIOR INVESTIGATOR Gender Identity Not on file Sexual Orientation Not on file COVID-19 Exposure Response Date Recorded In the last 10 days, have yo u been in contact with someone who was confirmed or suspected to have Coronavirus/COVID-19? No / Unsure 09/10/2022 9:08 AM SENIOR INVESTIGATOR documented as of this encounter Plan of Treatment Not on file documented as of this encounter Visit Diagnoses Not on filedocumented in this encounter Care Teams Scrap Carrier Relationship Specialty Start Date End Date None, Provider, PCP - General UNKNOWN PHYSICIAN SPECIALTY 07/31/22 documented as of this encounter
--- OUTSIDE RECORDS SUMMARY | 2025-06-27 14:19 | XMS_ITS | Encounter Summary ---
Author Organization [facility] Address [address] [place] [address] Care Team Providers Care Nuclear Medicine Tech Name Role Phone Gibson White MD Primary Care Provider None, Provider Primary Care Provider Darien rodriguez Encounter Details Date Type Department Care Team (Late st Contact Info) Description 01/30/2019 Abstract SFL CONVERSION [address] [place] [address] , Generic Conversion, Social History Tobacco Use Types Packs/Day Years Used Date Smoking Tobacco: Never Assessed Comments Unknown Sex and Gender Information Value Date Recorded Sex Assigned at Not on file Legal Sex Female 5:44 PM ASSOCIATE DIRECTOR OF DEVELOPMENT Gender Identity Not on file Sexual Orientation Not on file documented as of this encounter Plan of Treatment Not on file documented as of this encounter Visit Diagnoses Not on filedocumented in this encounter Care Teams Nuclear Medicine Tech Relationship Specialty Start Date End Date Gibson White MD [address] [place] [id number] PCP - General FAMILY PRACTICE 05/22/21 07/30/22 None, ProviderMD PCP - General UNKNOWN PHYSICIAN SPECIALTY 07/31/22 documented as of this encounter
[2025-06-27 14:39] LABS: Add Urine Microscopic? YES; Appearance Urine Clear (Clear); Glucose Urine UA Negative (Negative); Leukocyte Esterase Ur Negative LEU/UL (Negative); Nitrate Urine Negative (Negative); Specific Grav Ur 1.010 (1.010-1.020)
[2025-06-27] MEDS: HYDROcodone/acetaminophen (*CRX) 5-325 MG TABLET 1 TAB PO (15:26)
== END 2025-06-27 15:28 | disposition home or self-care (01) ==
PROVIDERS: Emergency Provider Emergency Medicine; PCP Family Medicine
DX: N83.9 Noninflammatory disorder of ovary, fallopian tube and broad ligament, unspecified (principal); F17.290 Nicotine dependence, other tobacco product, uncomplicated
CPT/HCPCS: 36415; 76830; 80053; 81001; 85025; 96361; 96374; 96375; 99284; A9270; J2405; J3010; J7030